=== PATIENT | male | born 1980 | race African-American/Black ===

== ENCOUNTER 2018-11-12 05:56 | Emergency (ER) | payer OTHER ==
[~2018-11-12] VITALS: Ht 188 cm; Wt 72.0 kg
[2018-11-12] MEDS ORDERED: ACET-704 PO (06:16)
[2018-11-12] MEDS ORDERED: CLIN300C8 PO (06:16)
[2018-11-12] MEDS ORDERED: LIDO15SO2 MM (06:16)
--- NOTE | 2018-11-12 06:16 | PHYS DOC ---
Adult General Chief Complaint Chief Complaint: DENTAL PROBLEM HPI HPI Patient is a 38-year-old male who presents with complaint of left lower dental pain that has been going on for the last few weeks and states the pain got acutely worse yesterday. He states that he has not yet scheduled appointment with a dentist because he had lost his wallet and found that again yesterday. Patient states that he is been taking Goody powders for the pain and that has brought his pain down to about a 1 but states that now the pain is worse, he is not able to manage it with the Goody powders any longer. He rates pain at a 10 out of 10. He states that nothing improves the pain.[] Review of Systems Review of Systems Constitutional: Denies fever or chills [] HENT: Positive dental pain[] Respiratory: Denies cough or shortness of breath [] Cardiovascular: No additional information not addressed in HPI [] Allergies Allergies Allergies Coded Allergies Type Severity Reaction Last Updated Verified bee venom protein (honey bee) Allergy Intermediate 11/12/18 Yes Physical Exam Physical Exam Constitutional: Well developed, well nourished, no acute distress, non-toxic appearance. [] HENT: Dentition demonstrates second molar in the left mandible with moderate caries and mild swelling around gums. [] Neck: Normal range of motion, no tenderness, supple, no stridor. [] Cardiovascular: Mildly tachycardic rate with regular rhythm[] Lungs & Thorax: Bilateral breath sounds clear to auscultation [] EKG EKG [] Radiology/Procedures Radiology/Procedures [] Course & Med Decision Making Course & Med Decision Making Pertinent Labs and Imaging studies reviewed. (See chart for details) [] Dragon Disclaimer Dragon Disclaimer This electronic medical record was generated, in whole or in part, using a voice recognition dictation system. Departure Departure: Impression: Primary Impression: Pain due to dental caries Disposition: 01 HOME, SELF-CARE Condition: STABLE Referrals: PCP,NO (PCP) Patient Instructions: Dental Caries, Dental Pain Scripts Lidocaine HCl (Lidocaine HCl Viscous) 15 Ml Solution 1 ML MM Q2HR PRN for dental pain, #100 ML Prov: JEB ACOSTA Jr. DO 11/12/18 Clindamycin Hcl (CLINDAMYCIN HCL) 300 Mg Capsule 1 CAP PO TID for infection, #30 CAP Prov: JEB ACOSTA Jr. DO 11/12/18 Acetaminophen With Codeine (TYLENOL WITH CODEINE #3 TABLET) 1 Each Tablet 1 TAB PO Q4-6HRS PRN for PAIN, #15 TAB Prov: JEB ACOSTA Jr. DO 11/12/18 JEB ACOSTA Jr. DO Nov 12, 2018 06:16
[2018-11-12 06:24] VITALS: BP 138/90
== END 2018-11-12 06:20 | disposition home or self-care (01) ==
LOC: ER 05:56
DX: K02.9 Dental caries, unspecified (principal); Z91.030 Bee allergy status
CPT/HCPCS: 99283

== ENCOUNTER 2019-12-13 19:45 | Emergency (ER) | payer OTHER ==
[~2019-12-13] VITALS: Ht 188 cm; Wt 64.1 kg
[~2019-12-13 19:45] MED LIST: ACET-704 PO; CLIN300C8 PO; LIDO20SO10 MM
--- NOTE | 2019-12-13 20:15 | PHYS DOC ---
Past History Past Medical History: No Pertinent History Past Surgical History: Other Alcohol Use: Occasionally Drug Use: Marijuana Adult General Chief Complaint Chief Complaint: CHEST PAIN HPI HPI Patient is a 39 year old male who presents to the emergency department with complaints of left-sided chest pain since approximately 2 PM today. Patient reports this left-sided chest pain is a 10/10 on a 1-10 pain scale that radiates down his left arm and into his left fingers. Patient states that there is nothing that increases nor decreases his pain. Patient denies shortness of breath. Patient states that the sensation going down his left arm is more of a tingling sensation with a numbness to his fingers and not a pain. Patient states that this has been going on for the past 4 months off-and-on and reports a frequency of at least 4-5 times per week. Patient notices that the pain comes shortly after vomiting. Patient states that he has a problem with increased acid production in his stomach and has to vomit every morning in order to eat. Patient states that shortly after vomiting is when he notices pain in his chest, on. Patient states that he just recently started seeing a doctor at a local clinic and has a appointment to see a GI specialist on this coming Sunday. Patient denies any recent fever or chills, any visual changes, cough or shortness of breath. Patient states he has nasal congestion shortly after vomiting that resolves within a few hours. Patient states that he does not have any edema or swelling of his extremities, denies abdominal pain, diarrhea, or constipation, or blood in his stools. Patient denies any problems urinating, denies penile discharge, denies STI concerns. Patient denies any pain in his back, or pain in his joints. Patient denies any skin rashes, headaches, focal weaknesses, increased urination or increased thirst. Patient denies any swelling of his glands. Patient denies depressions or anxieties. Patient denies homicidal or suicidal ideations. Patient denies being around anybody that has a COVID-19 virus, patient does not wish to be tested for the COVID-19 virus today. Patient states he is a pack-a-day smoker for several years, patient drinks 2 tall beers every day, patient denies illicit drug use. Review of Systems Review of Systems Constitutional: Denies fever or chills Eyes: Denies change in visual acuity, redness, or eye pain HENT: Denies denies a sore throat, however complains of intermittent nasal congestion after vomiting which lasts a few hours then self resolves without treatment. Respiratory: Denies cough or shortness of breath Cardiovascular: Complains of left-sided chest pain that radiates into left shoulder down left arm down to left hand, pain does not increase nor decrease, rates pain 10/10 on a 1-10 pain scale. GI: Denies abdominal pain, bloody stools or diarrhea. Patient does complain of daily vomiting for the past 4 months in the mornings which usually brings on his chest pains at a frequency of 4-5 times per week. : Denies dysuria or hematuria, denies penile discharge, denies STI concerns Musculoskeletal: Denies back pain or joint pain Integument: Denies rash or skin lesions Neurologic: Denies headache, focal weakness or sensory changes Endocrine: Denies polyuria or polydipsia Psychiatric: Patient denies homicidal or suicidal ideation, denies depressions or recent anxieties. All other systems were reviewed and found to be within normal limits, except as documented in this note. Family History Family History Patient states his father is healthy and takes no medications, patient states his mother has a pacemaker, history of congestive heart failure, eczema. Current Medications Current Medications Patient states she is currently on no medications, however has been prescribed a new medication that he has not started taking and does not know the name of this medication. Allergies Allergies Allergies Coded Allergies Type Severity Reaction Last Updated Verified bee venom protein (honey bee) Allergy Intermediate 11/12/18 Yes Physical Exam Physical Exam Constitutional: Well developed, well nourished, no acute distress, non-toxic appearance. HENT: Normocephalic, atraumatic, bilateral external ears normal, oropharynx moist, no oral exudates, nose normal. Eyes: PERRLA, EOMI, conjunctiva normal, no discharge. Neck: Normal range of motion, no tenderness, supple, no stridor. Cardiovascular:Heart rate regular rhythm, no murmur, heart sounds S1-S2 to auscultation. Lungs & Thorax: Bilateral breath sounds clear to auscultation all lung hoskins. Abdomen: Bowel sounds normal all 4 quadrants to auscultation, soft, no tenderness, no masses, no pulsatile masses. Skin: Warm, dry, no erythema, no rash. Back: No tenderness, no CVA tenderness. Extremities: No tenderness, no cyanosis, no clubbing, ROM intact, no edema. Neurologic: Alert and oriented X 3, normal motor function, normal sensory function, no focal deficits noted. Psychologic: Affect normal, judgement normal, mood normal. Current Patient Data Vital Signs Per ED nursing staff oral temp 98.2, heart rate 86, O2 sat 95% on room air, blood pressure noninvasive machine read 120/76, respirations 18 and nonlabored. Lab Results Laboratory Tests Test 12/13/19 20:10 White Blood Count 6.0 x10^3/uL Red Blood Count 4.07 x10^6/uL Hemoglobin 13.5 g/dL Hematocrit 40.3 % Mean Corpuscular Volume 99 fL Mean Corpuscular Hemoglobin 33 pg Mean Corpuscular Hemoglobin Concent 34 g/dL Red Cell Distribution Width 13.0 % Platelet Count 259 x10^3/uL Neutrophils (%) (Auto) 53 % Lymphocytes (%) (Auto) 36 % Monocytes (%) (Auto) 7 % Eosinophils (%) (Auto) 2 % Basophils (%) (Auto) 3 % Neutrophils # (Auto) 3.2 x10^3uL Lymphocytes # (Auto) 2.2 x10^3/uL Monocytes # (Auto) 0.4 x10^3/uL Eosinophils # (Auto) 0.1 x10^3/uL Basophils # (Auto) 0.2 x10^3/uL D-Dimer (Juliet) 0.38 mg/L Sodium Level 138 mmol/L Potassium Level 3.9 mmol/L Chloride Level 103 mmol/L Carbon Dioxide Level 23 mmol/L Anion Gap 12 Blood Urea Nitrogen 6 mg/dL Creatinine 1.0 mg/dL Estimated GFR (Cockcroft-Gault) 101.2 BUN/Creatinine Ratio 6 Glucose Level 104 mg/dL Calcium Level 8.7 mg/dL Magnesium Level 2.1 mg/dL Total Bilirubin 0.3 mg/dL Aspartate Amino Transf (AST/SGOT) 97 U/L Alanine Aminotransferase (ALT/SGPT) 65 U/L Alkaline Phosphatase 93 U/L Creatine Kinase 202 U/L Creatine Kinase MB (Mass) 0.8 ng/mL Creatine Kinase MB Relative Index 0.4 % Troponin I Quantitative < 0.017 ng/mL Total Protein 7.6 g/dL Albumin 3.9 g/dL Albumin/Globulin Ratio 1.1 Current Medications Medications (Trade) Dose Ordered Sig/Jeffry Route PRN Reason Start Time Stop Time Status Last Admin Dose Admin Multi-Ingredient Mouthwash/Gargle (Gi Cocktail) 20 ml 1X ONCE PO 12/13/19 21:00 12/13/19 21:01 DC 12/13/19 20:56 EKG EKG Twelve-lead EKG performed by ED nursing staff at 2000 shows a heart rate of 89 bpm normal sinus rhythm without ectopy NH interval 0.144, QTc interval 0.427, no STEMI, no coronary syndrome noted, EKG interpreted by ER attending Dr. Cornelius. Radiology/Procedures Radiology/Procedures REASON: CHEST PAIN PROCEDURE: CHEST PA & LATERAL EXAM: PA and Lateral Views of the Chest DATE: 12/13/2019 8:45 PM INDICATION: Reason: CHEST PAIN / Spl. Instructions: / History: COMPARISON: No Prior FINDINGS: The heart is not enlarged. Mediastinal and hilar contours are normal. No focal parenchymal airspace opacity. No pleural effusion or pneumothorax. Biapical pleural/parenchymal scarring/thickening. IMPRESSION: 1. No radiographic evidence for acute cardiopulmonary process. Electronically signed by: Sen Bardales MD (12/13/2019 9:41 PM) [facility]ENTER[facility]FFY DICTATED AND SIGNED BY: SEN BARDALES MD DATE: 12/13/192140 CC: JERARDO DOMINGUEZ APRN; [facility]; PCP,NO ~ Heart Score HEART Score for Chest Pain: HEART Score for Chest Pain Response (Comments) Value History Slighlty/Non-Suspicious 0 ECG Normal 0 Age < 45 0 Risk Factors 1 or 2 Risk Factors 1 Troponin < Normal Limit 0 Total 1 Risk Factors: Risk Factors: DM, Current or recent (<one month) smoker, HTN, HLP, family history of CAD, obesity. Risk Scores: Risk Factors: DM, Current or recent (<one month) smoker, HTN, HLP, family history of CAD, obesity. Course & Med Decision Making Course & Med Decision Making Pertinent Labs and Imaging studies reviewed. (See chart for details) 39-year-old male presents emergency department with crushing left-sided chest pain that radiates down the left arm. Patient's vital signs were within normal limits and stable. Patient complained of daily vomiting every morning for the past 4 months straight. Patient states he noticed that his pain in the chest came shortly after vomiting in the morning. Patient states that he is currently being seen at a clinic and has his first GI appointment on Sunday. A cardiac work-up was done in the emergency department. His heart score was a 1. The patient's cardiac enzymes and troponin were negative. The patient did not have an elevated D-dimer. Pulmonary embolus less likely. This was most likely an GERD with esophagitis without hemorrhage related to patient was given a GI cocktail which immediately relieved his symptoms. Patient did not have any more chest pain or discomfort during his ER stay. A chest x-ray was read negative for acute process by house radiologist. A wet read in the emergency department did not show any discrepancies of the chest x-ray. Discussed with patient physical findings and lab findings. Urged patient to keep GI appointment and to let the GI doctor know about his emergency department stay and that his cardiac work-up was negative. Also urged patient to let his GI specialist know that his chest pain was relieved with a GI cocktail. Patient will be started on Protonix, 40 mg p.o. daily count 30 tablets. Patient is to let his GI specialist know that he only has a 30-day supply of Protonix in case he determin es a different medication should be used. Patient gave verbal understanding of discharge instructions, home care instructions, prescription instructions, return to ER concerns, patient had no further questions or concerns. Patient discharged home without incident. Dragon Disclaimer Dragon Disclaimer This electronic medical record was generated, in whole or in part, using a voice recognition dictation system. Departure Departure: Impression: Primary Impression: GERD with esophagitis Disposition: 01 DC HOME SELF CARE/HOMELESS Condition: IMPROVED Referrals: PCP,NO (PCP) Patient Instructions: Diet for Gastroesophageal Reflux Disease, Adult, Gastroesophageal Reflux Disease, Adult Additional Instructions: You were seen today in the emergency department for chest pain, we worked you up for cardiac problems, you do not have any cardiac anomalies noted within the emergency department cardiac work-up, your cardiac enzymes were negative, your chest x-ray did not show any pneumonias or concerns for cardiac problems. You have told me you have had daily vomiting for several months, this led me to believe that your chest pain could be coming from an esophagitis that can mimic the same thing as cardiac pain. You are given a GI cocktail which almost immediately resolved your symptoms. Because of this ongoing vomiting that you complained about, I am going to start you on Protonix daily. Please let your GI specialist know that I started you on 40 mg of Protonix daily but only gave you enough for 30 days so that he can determine whether you need a change in medi cation at that time. You may need an additional prescription for more Protonix if your GI specialist feels that is appropriate. Please keep your GI specialist appointment for this coming Sunday and tell him that you are seen in the emergency department and had a full cardiac work-up completed that was negative for acute cardiac chest pain. Please let your GI specialist know that your pain was fixed after drinking a GI cocktail. I believe that you have GERD with esophagitis without bleeding or hemorrhage, the GI specialist will determine this for certain. Please return to the emergency department for worsening symptoms, keep your follow-up appointments with your clinic doctors and your GI specialist Dr. Whitehead Pantoprazole Sodium (PROTONIX) 40 Mg Tablet. 1 TAB PO DAILY for GERD, #30 TAB 0 Refills Prov: JERARDO DOMINGUEZ APRN 12/13/19 Problem Qualifiers Primary Impression: GERD with esophagitis Esophagitis bleeding: without hemorrhage Qualified Codes: K21.00 - Gastro- esophageal reflux disease with esophagitis, without bleeding JERARDO DOMINGUEZ APRN Dec 13, 2019 20:15
[2019-12-13 20:17] VITALS: BP 120/76
[2019-12-13] MEDS ORDERED: LIDO:MAALOX 1:1 20 ML SINGLE DOSE. PO ONE (21:00)
[2019-12-13 21:02] LABS: BASO # 0.2 x10^3/uL (0.0-0.2); BASO % 3 % (0-3); EOS # 0.1 x10^3/uL (0.0-0.7); EOS % 2 % (0-3); HEMATOCRIT 40.3 % (39.0-53.0); HEMOGLOBIN 13.5 g/dL (13.0-17.5); LYMPH # 2.2 x10^3/uL (1.0-4.8); LYMPH % 36 % (24-48); MEAN CORPUSCULAR HEMOGLOBIN 33 pg (25-35); MEAN CORPUSCULAR HGB CONC 34 g/dL (31-37); MEAN CORPUSCULAR VOLUME 99 fL (79-100); MONO # 0.4 x10^3/uL (0.0-1.1); MONO % 7 % (0-9); NEUT # 3.2 x10^3uL (1.8-7.7); NEUT % 53 % (31-73); PLATELET COUNT 259 x10^3/uL (140-400); RED BLOOD COUNT 4.07 x10^6/uL (4.30-5.70)
[2019-12-13 21:09] LABS: CALCIUM 8.7 mg/dL (8.5-10.1); GFR 101.2; POTASSIUM 3.9 mmol/L (3.5-5.1)
[2019-12-13 21:24] LABS: ALBUMIN 3.9 g/dL (3.4-5.0); ALBUMIN/GLOBULIN RATIO 1.1 (1.0-1.7); MAGNESIUM 2.1 mg/dL (1.8-2.4); TOTAL BILIRUBIN 0.3 mg/dL (0.2-1.0); TOTAL PROTEIN 7.6 g/dL (6.4-8.2)
--- NOTE | 2019-12-13 21:44 | RAD ---
EXAM: PA and Lateral Views of the Chest DATE: 12/13/2019 8:45 PM INDICATION: Reason: CHEST PAIN / Spl. Instructions: / History: COMPARISON: No Prior FINDINGS: The heart is not enlarged. Mediastinal and hilar contours are normal. No focal parenchymal airspace opacity. No pleural effusion or pneumothorax. Biapical pleural/parenchymal scarring/thickening. IMPRESSION: 1. No radiographic evidence for acute cardiopulmonary process. Electronically signed by: Sen Noe MD (12/13/2019 9:41 PM) [facility]
[2019-12-13] MEDS ORDERED: PANT40TA3 PO (21:58)
== END 2019-12-13 22:05 | disposition home or self-care (01) ==
LOC: ER 19:45
DX: K21.00 Gastro-esophageal reflux disease with esophagitis, without bleeding (principal); Z91.030 Bee allergy status
CPT/HCPCS: 36415; 71046; 80053; 82553; 83735; 84484; 85025; 85379; 99284